=== PATIENT | female | born 1960 | race Caucasian/White ===

== ENCOUNTER 2017-08-20 15:09 | Emergency (ER) | payer BC ==
[2017-08-20 15:17] VITALS: BP 115/73
--- NOTE | 2017-08-20 15:17 | UC ---
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 she has had increase swelling in foot and lateral ankle - History of Current Complaint Chief Complaint: UCLowerExtremity Stated Complaint: RIGHT ANKLE PAIN Time Seen by Provider: 08/20/17 15:16 Hx Obtained From: Patient Hx Last Menstrual Period: 09/2014 ?: No Onset/Duration: Sudden Onset, Lasting Days - 1 Severity Initially: Mild Severity Currently: Mild Aggravating Factor(s): Standing, Ambulation Alleviating Factor(s): Rest, Elevation Able to Bear Weight: Yes - Allergies/Home Medications Allergies/Adverse Reactions: Allergies Allergy/AdvReac Type Severity Reaction Status Date / Time environmental Allergy Sneezing Uncoded 08/20/17 15:17 Home Medications: Home Medications Cholecalciferol [Vitamin D] 1,000 unit PO DAILY 08/20/17 [History Confirmed ] Lactobacillus [Probiotic] 1 cap PO DAILY 08/20/17 [History Confirmed 08/20/17] Magnesium [Magnesium Elemental] 1 tab PO DAILY 08/20/17 [History Confirmed 08/20] [place]-3 Fatty Acids [Fish Oil] 1,000 mg PO DAILY 08/20/17 [History Confirmed ] PMH/Surg Hx/FS Hx/Imm Hx Previously Healthy: Yes - Surgical History Surgical History: Yes Surgery Procedure, Year, and Place: umbilical hernia - Family History Known Family History: Positive: None - Social History Occupation: Employed Full-time Lives: With Family Alcohol Use: Occasionally Substance Use Type: None Smoking Status (MU): Never Smoked Tobacco Review of Systems Constitutional: Negative Skin: Negative Eyes: Negative ENT: Negative Respiratory: Negative Cardiovascular: Negative Gastrointestinal: Negative Genitourinary: Negative Motor: Negative Neurovascular: Negative Musculoskeletal: Arthralgia - lateral right ankle Neurological: Negative Psychological: Negative Is Patient Immunocompromised?: No All Other Systems Reviewed And Are Negative: Yes Physical Exam Triage Information Reviewed: Yes Appearance: Well-Appearing, No Pain Distress, Well-Nourished Vital Signs Reviewed: Yes Eye Exam: Normal Eyes: Positive: Conjunctiva Clear ENT Exam: Normal ENT: Positive: Normal ENT inspection, Hearing grossly normal. Negative: Nasal congestion, Nasal drainage, Trismus, Muffled/hoarse voice Dental Exam: Normal Neck exam: Normal Neck: Positive: Supple, Nontender Respiratory Exam: Normal Respiratory: Positive: Chest non-tender, No respiratory distress, No accessory muscle use Cardiovascular Exam: Normal Cardiovascular: Positive: RRR, Pulses Normal, Brisk Capillary Refill Musculoskeletal Exam: Normal Musculoskeletal: Positive: Strength Intact, ROM Intact, Edema @ - lateral right ankle Neurological Exam: Normal Neurological: Positive: Alert, Muscle Tone Normal Psychological Exam: Normal Skin Exam: Normal Diagnostics - Radiology No standard instances Xray Interpretation: Positive (See Comments) - lateral malleolus fx Radiology Interpretation Completed By: ED Physician Lower Extremity Course/Dx - Course Course Of Treatment: RICE, crutches, NWB, IBUProfen follow with orthopedic MD - Differential Dx/Diagnosis Differential Diagnosis/HQI/PQRI: Contusion, Fracture (Closed), Sprain, Strain Provider Diagnoses: Right ankle fracture Discharge - Discharge Plan Condition: Stable Disposition: HOME Prescriptions: Ibuprofen TAB* [Motrin TAB* 600 MG] 600 mg PO Q6H PRN #40 tab PRN Reason: pain Patient Education Materials: Ankle Fracture (ED), Ankle Stirrup Splint (ED), Crutch Instructions (ED), RICE Therapy (ED), Ibuprofen (By mouth) Referrals: Jones Springer MD [Medical Doctor] - 4 Days
--- NOTE | 2017-08-20 16:03 | RAD ---
INDICATION: Right ankle injury. TECHNIQUE: 3 views of the right ankle were obtained. FINDINGS: There is soft tissue swelling present along the anterolateral aspect of the ankle. There is a transverse nondisplaced fracture through the distal fibular tip. No other fractures are seen. Joint spaces appear maintained. IMPRESSION: SOFT TISSUE SWELLING AND TRANSVERSE NONDISPLACED FRACTURE OF THE DISTAL FIBULA.
== END 2017-08-20 16:28 | disposition home or self-care (01) ==
LOC: UCCORT 15:09
DX: S82.424A Nondisplaced transverse fracture of shaft of right fibula, initial encounter for closed fracture (principal); X50.1XXA Overexertion from prolonged static or awkward postures, initial encounter; Y93.9 Activity, unspecified; Y92.9 Unspecified place or not applicable
CPT/HCPCS: 99213; G0463

== ENCOUNTER 2019-01-11 11:03 | Emergency (ER) | payer BC ==
[2019-01-11 13:28] VITALS: BP 115/84
--- NOTE | 2019-01-11 13:35 | UC ---
Throat Pain/Nasal Axel HPI - HPI Summary HPI Summary: 5 days of body aches, chest and facial congestion, did not get a flu vaccine this year--works as a golf teacher - History of Current Complaint Chief Complaint: UCRespiratory Stated Complaint: COUGH/CINGESTION/BILAT EAR PAIN Time Seen by Provider: 01/11/19 13:27 Hx Obtained From: Patient Hx Last Menstrual Period: 09/2014 ?: No Onset/Duration: Sudden Onset, Lasting Days - 5, Still Present Severity: Moderate Pain Intensity: 0 Cough: Nonproductive Associated Signs & Symptoms: Positive: Sinus Discomfort, Nasal Discharge - Allergies/Home Medications Allergies/Adverse Reactions: Allergies Allergy/AdvReac Type Severity Reaction Status Date / Time environmental Allergy Sneezing Uncoded 01/11/19 13:25 PMH/Surg Hx/FS Hx/Imm Hx Previously Healthy: Yes - Surgical History Surgical History: Yes Surgery Procedure, Year, and Place: umbilical hernia - Family History Known Family History: Positive: None Negative: Diabetes - Social History Occupation: Employed Full-time Lives: With Family Alcohol Use: Occasionally Alcohol Amount: glass of wine Substance Use Type: None Smoking Status (MU): Never Smoked Tobacco - Immunization History Most Recent Influenza Vaccination: no Review of Systems All Other Systems Reviewed And Are Negative: Yes Constitutional: Positive: Chills, Fatigue Skin: Positive: Negative Eyes: Positive: Negative ENT: Positive: Sore Throat, Ear Ache, Nasal Discharge, Sinus Congestion Respiratory: Positive: Cough Cardiovascular: Positive: Negative Gastrointestinal: Positive: Negative Genitourinary: Positive: Negative Motor: Positive: Negative Neurovascular: Positive: Negative Musculoskeletal: Positive: Arthralgia, Myalgia Neurological: Positive: Headache Psychological: Positive: Negative Is Patient Immunocompromised?: No Physical Exam Triage Information Reviewed: Yes Appearance: Well-Nourished, Ill-Appearing, Pain Distress Vital Signs: Initial Vital Signs Temp 99.9 F 01/11/19 13:26 Pulse 72 01/11/19 13:26 Resp 16 01/11/19 13:26 BP 115/84 01/11/19 13:26 Pulse Ox 98 01/11/19 13:26 Vital Signs Reviewed: Yes Eye Exam: Normal Eyes: Positive: Conjunctiva Clear ENT Exam: Normal ENT: Positive: Normal ENT inspection, Hearing grossly normal, Pharynx normal, TMs normal, Uvula midline. Negative: Nasal congestion, Trismus, Muffled voice, Hoarse voice, Dental tenderness, Sinus tenderness Dental Exam: Normal Neck exam: Normal Neck: Positive: Supple, Nontender, No Lymphadenopathy Respiratory Exam: Normal Respiratory: Positive: Chest non-tender, Lungs clear, Normal breath sounds, No respiratory distress, No accessory muscle use Cardiovascular Exam: Normal Cardiovascular: Positive: RRR, No Murmur, Pulses Normal, Brisk Capillary Refill Musculoskeletal Exam: Normal Musculoskeletal: Positive: Strength Intact, ROM Intact, No Edema Neurological Exam: Normal Neurological: Positive: Alert, Muscle Tone Normal Psychological Exam: Normal Skin Exam: Normal Diagnostics - Laboratory Diagnostic Studies Completed/Ordered: influenza (-) Throat Pain/Nasal Course/Dx - Course Assessment/Plan: Augmentin, flonase, tylenol/ibuprofen for pain , follow with pcp prn - Differential Dx/Diagnosis Provider Diagnosis: Rhinosinusitis Discharge - Sign-Out/Discharge Documenting (check all that apply): Patient Departure All imaging exams completed and their final reports reviewed: No Studies - Discharge Plan Condition: Stable Disposition: HOME Prescriptions: Amoxicillin/Clavulanate TAB* [Augmentin TAB 875*] 875 mg PO BID 10 Days #20 tab Fluticasone NASAL SPRAY 50MCG* [Flonase NASAL SPRAY 50MCG*] 2 spray BOTH NARES DAILY #1 btl Patient Education Materials: Rhinosinusitis (ED), How to Use Nasal [place] (ED) Referrals: Odalys James MD [Primary Care Provider] - If Needed - Billing Disposition and Condition Condition: STABLE Disposition: Home
[2019-01-12 07:34] LABS: Influenza A Molecular NEGATIVE (Negative); Influenza B Molecular NEGATIVE (Negative)
== END 2019-01-11 14:08 | disposition home or self-care (01) ==
LOC: UCCORT 11:03
DX: J32.9 Chronic sinusitis, unspecified (principal); Z91.09 Other allergy status, other than to drugs and biological substances
CPT/HCPCS: 99212; G0463